=== PATIENT | male | born 1970 | race Two or more races ===

== ENCOUNTER 2019-06-10 21:38 | Emergency (ER) | payer MEDICAID ==
[~2019-06-10] VITALS: Ht 162.6 cm; Wt 79.4 kg
[2019-06-10 21:50] VITALS: BP 141/92
[2019-06-10] MEDS ORDERED: TETRACAINE HCL 0.5% OPTH(EYE) SOLN 4ML EACHEYE ONE (22:30)
[2019-06-10] MEDS ORDERED: FLUORESCEIN SOD 1 MG TEST STRIP EACHEYE ONE (22:30)
== END 2019-06-10 22:54 | disposition home or self-care (01) ==
LOC: ER 21:41
DX: T15.02XA Foreign body in cornea, left eye, initial encounter (principal); H16.002 Unspecified corneal ulcer, left eye; W22.8XXA Striking against or struck by other objects, initial encounter; Y93.89 Activity, other specified; Y92.89 Other specified places as the place of occurrence of the external cause; Y99.8 Other external cause status
CPT/HCPCS: 65220; 65222

== ENCOUNTER 2019-06-11 07:58 | Emergency (ER) | payer MEDICAID ==
[~2019-06-11] VITALS: Ht 162.6 cm; Wt 79.4 kg
[2019-06-11 08:30] VITALS: BP 158/77
[2019-06-11] MEDS ORDERED: FLUORESCEIN SOD 1 MG TEST STRIP LEFTEYE ONE (08:45)
[2019-06-11] MEDS ORDERED: TETRACAINE HCL 0.5% OPTH(EYE) SOLN 4ML LEFTEYE ONE (08:45)
== END 2019-06-11 09:29 | disposition home or self-care (01) ==
LOC: ER 07:58
DX: S05.02XA Injury of conjunctiva and corneal abrasion without foreign body, left eye, initial encounter (principal); X58.XXXA Exposure to other specified factors, initial encounter; Y93.89 Activity, other specified; Y92.89 Other specified places as the place of occurrence of the external cause; Y99.8 Other external cause status